=== PATIENT | male | born 1955 | race Caucasian/White ===

== ENCOUNTER 2020-09-11 04:23 | Day surgery (SDC) | payer OTHER ==
[2020-09-07 16:53] VITALS: BMI 33.4
[2020-09-11] MEDS ORDERED: PROPOFOL 20 ML ONE (07:37)
[2020-09-11] MEDS ORDERED: MIDAZOLAM HCL 2 MG/2 ML SINGLE DOSE VIAL ONE ×2 (07:37→08:05)
[2020-09-11 11:27] VITALS: BP 143/92; PULSE 75; TEMP 98
== END 2020-09-11 10:30 | disposition home or self-care (01) ==
LOC: JASU-SURG 04:23
PROVIDERS: ATTEND Urology
PROC: 0TF4XZZ Fragmentation in Left Kidney Pelvis, External Approach (ICD-10-PCS; principal; 2020-09-11 08:00)
DX: N20.0 Calculus of kidney (principal)

== ENCOUNTER 2020-10-06 20:37 | Inpatient (IN) | payer OTHER ==
[2020-10-06 22:50] LABS: HEMATOCRIT 26.1 % (35.4-49); HEMOGLOBIN 8.5 GM/dL (11.7-16.9); MCH 28.5 pg (25.7-33.7); MCHC 32.8 g/dl (32.0-35.9); MEAN CELL VOLUME 87.1 fl (80-96); MEAN PLT VOLUME 7.5 fl (7.5-11.1); PLATELET COUNT 496 10^3/uL (134-434); RBC 2.99 M/mm3 (4.00-5.60); RDW 15.3 % (11.9-15.9); WHITE BLOOD COUNT 20.4 K/mm3 (4.0-10.0)
[2020-10-06 23:00] LABS: INR 1.62 (0.83-1.09); PROTHROMBIN TIME (PATIENT) 19.3 SEC (9.7-13.0)
[2020-10-06 23:07] LABS: CHLORIDE 105 mmol/L (98-107); SODIUM 139 mmol/L (136-145)
[2020-10-06 23:10] LABS: ALBUMIN 2.3 g/dl (3.4-5.0); ANION GAP 10 MMOL/L (8-16); BLOOD UREA NITROGEN 19.2 mg/dL (7-18); CALCIUM 8.7 mg/dL (8.5-10.1); CO2 23 mmol/L (21-32); LIPASE 112 U/L (73-393); MAGNESIUM 2.1 mg/dL (1.8-2.4)
[2020-10-06 23:11] LABS: GLUCOSE,RANDOM 105 mg/dL (74-106)
[2020-10-06 23:13] LABS: CREATININE 1.3 mg/dL (0.55-1.3); SGOT/AST 57 U/L (15-37); SGPT/ALT 85 U/L (13-61)
[2020-10-06 23:14] LABS: PHOSPHOROUS 2.5 mg/dL (2.5-4.9)
[2020-10-06 23:15] LABS: BILIRUBIN,TOTAL 0.5 mg/dL (0.2-1); TOT PROT 6.9 g/dl (6.4-8.2)
[2020-10-06 23:16] LABS: ALK PHOS 241 U/L (45-117)
[2020-10-06] MEDS ORDERED: SODIUM CHLORIDE 0.9% 500 ML INFUS.BAG IV ONE (23:41)
[2020-10-07] MEDS ORDERED: DEXTROSE 5%-NORMAL SALINE 1,000 ML IV SCH (05:15)
[2020-10-07] MEDS ORDERED: ACETAMINOPHEN 1000 MG/100 ML VIAL (NON FORMULARY) IVPB ONE (06:38)
[2020-10-07] MEDS ORDERED: PIPERACILLIN/TAZOB 3.375 GM 3.375 GM in DEXTROSE 5%-WATER - 50 ML IVPB SCH (07:30)
[2020-10-07] MEDS ORDERED: PIPERACILLIN/TAZOBACTAM 3.375 GM VIAL IVPB ONE ×2 (08:39→17:03)
[2020-10-07] MEDS ORDERED: DEXTROSE 5%-WATER - 50 ML IVPB ONE ×2 (08:39→17:03)
[2020-10-07] MEDS: ALLOPURINOL 100 MG TABLET (FP) PO SCH (09:11)
[2020-10-07] MEDS: ENOXAPARIN NA (PORCINE) 40 MG/0.4 ML DISP.SYRIN SQ SCH (09:11)
[2020-10-07] MEDS: PIPERACILLIN/TAZOB 3.375 GM 3.375 GM in DEXTROSE 5%-WATER - 50 ML IVPB SCH ×2 (09:11→17:17)
[2020-10-07] MEDS ORDERED: PT OWN MED DRAWER 7, Y5N ONE (09:32)
[2020-10-07 10:29] LABS: HEMATOCRIT 24.5 % (35.4-49); MCH 28.6 pg (25.7-33.7); MCHC 32.8 g/dl (32.0-35.9); MEAN CELL VOLUME 87.2 fl (80-96); MEAN PLT VOLUME 7.6 fl (7.5-11.1); PLATELET COUNT 442 10^3/uL (134-434); RBC 2.82 M/mm3 (4.00-5.60); RDW 15.3 % (11.9-15.9); WHITE BLOOD COUNT 14.8 K/mm3 (4.0-10.0)
[2020-10-07] MEDS: FAMOTIDINE 20 MG/50 ML IVPB 20 MG/50 ML MG IVPB SCH ×2 (10:56→21:11)
[2020-10-07 11:45] LABS: ANISOCYTOSIS 0; HELMET CELLS 0; HOWELL-JOLLY BODIES 0; MACROCYTOSIS 0; OVALOCYTE 0; PLATELET ESTIMATE NORMAL; ROULEAU 0; SICKELED CELLS 0; TARGET CELLS 0; TEAR DROP CELLS 0; TOXIC GRANULATION 0
[2020-10-07 14:11] LABS: URINE APPEARANCE CLEAR; URINE BILIRUBIN NEGATIVE (NEGATIVE); URINE COLOR YELLOW; URINE GLUCOSE (UA) NEGATIVE (NEGATIVE); URINE KETONE TRACE (NEGATIVE)
[2020-10-07 14:12] LABS: URINE LEUK ESTERASE NEGATIVE (NEGATIVE); URINE NITRITE NEGATIVE (NEGATIVE); URINE PROTEIN 30 MG/DL (NEGATIVE); URINE UROBILINOGEN 1 mg/dL (0.2-1.0)
[2020-10-07] MEDS ORDERED: SODIUM CHLORIDE 0.45%/POT 20 MEQ/1,000 ML INFUS.BAG IV SCH (15:15)
[2020-10-08] MEDS ORDERED: PIPERACILLIN/TAZOBACTAM 3.375 GM VIAL IVPB ONE ×3 (00:52→17:18)
[2020-10-08] MEDS ORDERED: DEXTROSE 5%-WATER - 50 ML IVPB ONE ×3 (00:53→17:19)
[2020-10-08] MEDS: PIPERACILLIN/TAZOB 3.375 GM 3.375 GM in DEXTROSE 5%-WATER - 50 ML IVPB SCH ×3 (01:32→18:09)
[2020-10-08] MEDS ORDERED: PIPERACILLIN/TAZOB 3.375 GM 3.375 GM in DEXTROSE 5%-WATER - 50 ML IVPB SCH (02:00)
[2020-10-08 08:31] LABS: BASO % 0.3 % (0-2.0); EOS % 0.7 % (0-4.5); HEMATOCRIT 25.2 % (35.4-49); HEMOGLOBIN 8.4 GM/dL (11.7-16.9); LYMPH % 4.4 % (8-40); MCH 28.9 pg (25.7-33.7); MCHC 33.2 g/dl (32.0-35.9); MEAN CELL VOLUME 87.2 fl (80-96); MEAN PLT VOLUME 7.8 fl (7.5-11.1); MONO % 6.1 % (3.8-10.2); NEUT % 88.5 % (42.8-82.8); PLATELET COUNT 442 10^3/uL (134-434); RBC 2.89 M/mm3 (4.00-5.60); RDW 15.1 % (11.9-15.9); WHITE BLOOD COUNT 10.9 K/mm3 (4.0-10.0)
[2020-10-08 08:38] LABS: INR 1.51 (0.83-1.09); PROTHROMBIN TIME (PATIENT) 18.1 SEC (9.7-13.0)
[2020-10-08 08:56] LABS: ALBUMIN 1.9 g/dl (3.4-5.0); BLOOD UREA NITROGEN 18.9 mg/dL (7-18); CALCIUM 7.9 mg/dL (8.5-10.1); MAGNESIUM 2.3 mg/dL (1.8-2.4)
[2020-10-08 09:01] LABS: BILIRUBIN,TOTAL 0.4 mg/dL (0.2-1); TOT PROT 6.4 g/dl (6.4-8.2)
[2020-10-08] MEDS: ENOXAPARIN NA (PORCINE) 40 MG/0.4 ML DISP.SYRIN SQ SCH (09:04)
[2020-10-08] MEDS ORDERED: PHYTONADIONE 10 MG/1 ML AMP SQ ONE (10:07)
[2020-10-08] MEDS ORDERED: ACETAMINOPHEN 1000 MG/100 ML VIAL (NON FORMULARY) IVPB ONE (10:13)
[2020-10-08] MEDS: FAMOTIDINE 20 MG/50 ML IVPB 20 MG/50 ML MG IVPB SCH ×2 (10:26→21:45)
[2020-10-08] MEDS: ALLOPURINOL 100 MG TABLET (FP) PO SCH (10:27)
[2020-10-08] MEDS: D5-1/2NS+20 MEQ KCL - 20 MEQ/1,000 ML INFUS.BAG IV SCH (15:07)
[2020-10-08] MEDS ORDERED: IBUPROFEN 800 MG/8 ML IJ IVPB ONE (17:45)
[2020-10-09] MEDS ORDERED: DEXTROSE 5%-WATER - 50 ML IVPB ONE ×3 (01:04→17:52)
[2020-10-09] MEDS ORDERED: PIPERACILLIN/TAZOBACTAM 3.375 GM VIAL IVPB ONE ×3 (01:04→17:52)
[2020-10-09] MEDS: PIPERACILLIN/TAZOB 3.375 GM 3.375 GM in DEXTROSE 5%-WATER - 50 ML IVPB SCH ×3 (01:20→17:54)
[2020-10-09 07:43] LABS: HEMATOCRIT 23.6 % (35.4-49); HEMOGLOBIN 7.8 GM/dL (11.7-16.9); MCH 28.5 pg (25.7-33.7); MCHC 32.9 g/dl (32.0-35.9); MEAN CELL VOLUME 86.5 fl (80-96); MEAN PLT VOLUME 7.7 fl (7.5-11.1); PLATELET COUNT 350 10^3/uL (134-434); RBC 2.73 M/mm3 (4.00-5.60); RDW 15.6 % (11.9-15.9); WHITE BLOOD COUNT 13.4 K/mm3 (4.0-10.0)
[2020-10-09 07:45] LABS: INR 1.68 (0.83-1.09)
[2020-10-09 07:50] LABS: ALBUMIN 1.8 g/dl (3.4-5.0); BLOOD UREA NITROGEN 16.5 mg/dL (7-18); CALCIUM 7.8 mg/dL (8.5-10.1); MAGNESIUM 2.3 mg/dL (1.8-2.4)
[2020-10-09 07:53] LABS: CREATININE 0.9 mg/dL (0.55-1.3)
[2020-10-09 07:55] LABS: TOT PROT 6.1 g/dl (6.4-8.2)
[2020-10-09 07:58] LABS: BILIRUBIN,TOTAL 0.3 mg/dL (0.2-1)
[2020-10-09] MEDS ORDERED: ACETAMINOPHEN 1000 MG/100 ML VIAL (NON FORMULARY) IVPB PRN (08:10)
[2020-10-09] MEDS ORDERED: IBUPROFEN 800 MG/8 ML IJ IVPB PRN (08:21)
[2020-10-09] MEDS ORDERED: IBUPROFEN 800 MG/8 ML IJ IVPB ONE (08:30)
[2020-10-09 08:48] LABS: ANISOCYTOSIS 0; HELMET CELLS 0; HOWELL-JOLLY BODIES 0; MACROCYTOSIS 0; OVALOCYTE 0; PLATELET ESTIMATE NORMAL; ROULEAU 0; SICKELED CELLS 0; TARGET CELLS 0; TEAR DROP CELLS 0; TOXIC GRANULATION 0
[2020-10-09] MEDS: ALLOPURINOL 100 MG TABLET (FP) PO SCH (09:38)
[2020-10-09] MEDS: FAMOTIDINE 20 MG/50 ML IVPB 20 MG/50 ML MG IVPB SCH ×2 (09:39→21:41)
[2020-10-09] MEDS: ENOXAPARIN NA (PORCINE) 40 MG/0.4 ML DISP.SYRIN SQ SCH (10:51)
[2020-10-09] MEDS ORDERED: MIDAZOLAM HCL 2 MG/2 ML SINGLE DOSE VIAL IVPUSH ONE (12:10)
[2020-10-09 15:17] VITALS: BMI 32.6
[2020-10-09] MEDS: D5-1/2NS+20 MEQ KCL - 20 MEQ/1,000 ML INFUS.BAG IV SCH (17:50)
[2020-10-10] MEDS ORDERED: DEXTROSE 5%-WATER - 50 ML IVPB ONE (01:24)
[2020-10-10] MEDS ORDERED: PIPERACILLIN/TAZOBACTAM 3.375 GM VIAL IVPB ONE (01:24)
[2020-10-10] MEDS: PIPERACILLIN/TAZOB 3.375 GM 3.375 GM in DEXTROSE 5%-WATER - 50 ML IVPB SCH (02:45)
[2020-10-10 08:35] LABS: HEMATOCRIT 29.3 % (35.4-49); HEMOGLOBIN 9.8 GM/dL (11.7-16.9); MCH 28.7 pg (25.7-33.7); MCHC 33.6 g/dl (32.0-35.9); MEAN CELL VOLUME 85.6 fl (80-96); MEAN PLT VOLUME 7.8 fl (7.5-11.1); PLATELET COUNT 412 10^3/uL (134-434); RBC 3.42 M/mm3 (4.00-5.60); RDW 15.6 % (11.9-15.9); WHITE BLOOD COUNT 9.7 K/mm3 (4.0-10.0)
[2020-10-10 08:54] LABS: CALCIUM 7.9 mg/dL (8.5-10.1)
[2020-10-10 08:55] LABS: ALBUMIN 1.8 g/dl (3.4-5.0); BLOOD UREA NITROGEN 17.1 mg/dL (7-18); MAGNESIUM 2.4 mg/dL (1.8-2.4)
[2020-10-10 08:57] LABS: CREATININE 0.9 mg/dL (0.55-1.3)
[2020-10-10 08:59] LABS: BILIRUBIN,TOTAL 0.4 mg/dL (0.2-1)
[2020-10-10] MEDS: ENOXAPARIN NA (PORCINE) 40 MG/0.4 ML DISP.SYRIN SQ SCH (10:04)
[2020-10-10] MEDS: ALLOPURINOL 100 MG TABLET (FP) PO SCH (10:04)
[2020-10-10] MEDS: FAMOTIDINE 20 MG/50 ML IVPB 20 MG/50 ML MG IVPB SCH (10:04)
[2020-10-10] MEDS: ERTAPENEM SODIUM 1 GM in SODIUM CHLORIDE 50 ML IVPB SCH (10:57)
[2020-10-10 13:45] LABS: EPI CELLS 7 /uL (0-25.1); HYALINE CASTS 4 /uL (0-3.1); PH,URINE 5.5 (5.0-8.0); URINE APPEARANCE CLEAR; URINE BACTERIA 4 /uL (0-1359); URINE BILIRUBIN NEGATIVE (NEGATIVE); URINE COLOR YELLOW; URINE GLUCOSE (UA) NEGATIVE (NEGATIVE); URINE KETONE NEGATIVE (NEGATIVE); URINE LEUK ESTERASE TRACE (NEGATIVE); URINE NITRITE NEGATIVE (NEGATIVE); URINE PROTEIN TRACE (NEGATIVE); URINE RBC 14 /uL (0-23.9); URINE UROBILINOGEN 0.2 mg/dL (0.2-1.0); URINE WBC 18 /uL (0-25.8)
[2020-10-10] MEDS ORDERED: IBUPROFEN 600 MG TABLET (FP) PO PRN (16:45)
[2020-10-10] MEDS: D5-1/2NS+20 MEQ KCL - 20 MEQ/1,000 ML INFUS.BAG IV SCH (16:54)
[2020-10-10] MEDS ORDERED: ALPRAZolam 1 MG TABLET PO PRN (17:18)
[2020-10-10] MEDS: ALPRAZolam 1 MG TABLET PO ONE ×2 (18:01→18:12)
[2020-10-10] MEDS: FAMOTIDINE 20 MG TABLET PO SCH (21:09)
[2020-10-11 07:58] LABS: HEMATOCRIT 32.4 % (35.4-49); HEMOGLOBIN 10.9 GM/dL (11.7-16.9); MCH 29.2 pg (25.7-33.7); MCHC 33.7 g/dl (32.0-35.9); MEAN CELL VOLUME 86.4 fl (80-96); MEAN PLT VOLUME 8.3 fl (7.5-11.1); PLATELET COUNT 474 10^3/uL (134-434); RBC 3.75 M/mm3 (4.00-5.60); RDW 16.3 % (11.9-15.9)
[2020-10-11 08:22] LABS: CALCIUM 8.6 mg/dL (8.5-10.1)
[2020-10-11 08:23] LABS: BLOOD UREA NITROGEN 17.2 mg/dL (7-18)
[2020-10-11 08:25] LABS: MAGNESIUM 2.2 mg/dL (1.8-2.4)
[2020-10-11 08:26] LABS: CREATININE 0.8 mg/dL (0.55-1.3)
[2020-10-11 08:28] LABS: BILIRUBIN,TOTAL 0.3 mg/dL (0.2-1); TOT PROT 6.3 g/dl (6.4-8.2)
[2020-10-11 08:29] LABS: PHOSPHOROUS 4.3 mg/dL (2.5-4.9)
[2020-10-11] MEDS: ERTAPENEM SODIUM 1 GM in SODIUM CHLORIDE 50 ML IVPB SCH (10:05)
[2020-10-11] MEDS: ENOXAPARIN NA (PORCINE) 40 MG/0.4 ML DISP.SYRIN SQ SCH (10:06)
[2020-10-11] MEDS: FAMOTIDINE 20 MG TABLET PO SCH (10:07)
[2020-10-11] MEDS: ALLOPURINOL 100 MG TABLET (FP) PO SCH (10:07)
[2020-10-11 10:26] VITALS: BP 141/86; PULSE 64; TEMP 98.7
== END 2020-10-11 12:43 | disposition home health service (06) | DRG 441 ==
LOC: JER 20:37 → JERBED 10-07 03:28 → J8W 10-07 05:02 → J4S 10-08 16:56
PROVIDERS: ADMIT Internal Medicine; ATTEND Family Medicine
PROC: 0F9030Z Drainage of Liver with Drainage Device, Percutaneous Approach (ICD-10-PCS; principal; 2020-10-09)
PROC: 02HV33Z Insertion of Infusion Device into Superior Vena Cava, Percutaneous Approach (ICD-10-PCS; 2020-10-10)
PROC: B518ZZA Fluoroscopy of Superior Vena Cava, Guidance (ICD-10-PCS; 2020-10-10)
DX: K75.0 Abscess of liver (principal); A41.89 Other specified sepsis; E86.0 Dehydration; I10 Essential (primary) hypertension; E11.9 Type 2 diabetes mellitus without complications; M10.9 Gout, unspecified; R10.11 Right upper quadrant pain; K42.9 Umbilical hernia without obstruction or gangrene; K40.90 Unilateral inguinal hernia, without obstruction or gangrene, not specified as recurrent; D72.829 Elevated white blood cell count, unspecified; D64.9 Anemia, unspecified; E88.09 Other disorders of plasma-protein metabolism, not elsewhere classified; D47.3 Essential (hemorrhagic) thrombocythemia; N20.0 Calculus of kidney; R63.4 Abnormal weight loss; Z68.32 Body mass index [BMI] 32.0-32.9, adult; T18.3XXA Foreign body in small intestine, initial encounter; R50.9 Fever, unspecified
CPT/HCPCS: 36415; 36430; 36569; 49405; 71045-TC-FY; 74018-TC-FY; 74177-TC; 76700-TC; 77001-TC-FY; 80048; 80053; 81003; 82272; 82550; 82607; 82728; 83540; 83550; 83605; 83615; 83690; 83735; 84100; 84484; 85025; 85027; 85220; 85240; 85610; 85730; 86301; 86682; 86753; 86850; 86900; 86901; 86922; 87040; 87070; 87075; 87077; 87086; 87102; 87116; 87205; 87206; 87207; 87210; 87899; 88108; 88305-TC; 93005; 93010; 99285-25; C1729; C1751; C1769; C9803; J0131; J3480; P9058; U0003; U0005

== ENCOUNTER 2021-02-09 08:42 | Emergency (ER) | payer OTHER ==
[2021-02-09 09:05] VITALS: BP 134/83; PULSE 57; TEMP 98.6; BMI 31.1
[2021-02-09 09:57] LABS: BASO % 0.6 % (0-2.0); HEMATOCRIT 40.3 % (35.4-49); HEMOGLOBIN 13.5 GM/dL (11.7-16.9); MCH 30.5 pg (25.7-33.7); MCHC 33.4 g/dl (32.0-35.9); MEAN CELL VOLUME 91.3 fl (80-96); MEAN PLT VOLUME 8.8 fl (7.5-11.1); MONO % 10.2 % (3.8-10.2); NEUT % 79.2 % (42.8-82.8); PLATELET COUNT 238 10^3/uL (134-434); RBC 4.42 M/mm3 (4.00-5.60); RDW 13.9 % (11.9-15.9); WHITE BLOOD COUNT 8.9 K/mm3 (4.0-10.0)
[2021-02-09 10:06] LABS: CALCIUM 9.1 mg/dL (8.5-10.1)
[2021-02-09 10:07] LABS: ALBUMIN 3.2 g/dl (3.4-5.0)
[2021-02-09 10:10] LABS: CREATININE 1.3 mg/dL (0.55-1.3)
[2021-02-09 10:11] LABS: BILIRUBIN,TOTAL 0.3 mg/dL (0.2-1)
[2021-02-09 10:12] LABS: TOT PROT 6.4 g/dl (6.4-8.2)
[2021-02-09 10:15] LABS: PROTHROMBIN TIME (PATIENT) 11.7 SEC (9.7-13.0)
[2021-02-09 10:18] LABS: ACTIVATED PTT 27.1 SECONDS (25.2-36.5)
[2021-02-09 10:22] LABS: BLOOD UREA NITROGEN 28.3 mg/dL (7-18)
[2021-02-09] MEDS ORDERED: KETOROLAC TROMETHAMINE 15 MG/ML VIAL IVPUSH ONE (11:41)
[2021-02-09] MEDS ORDERED: KETOROLAC TROMETHAMINE 30 MG/1 ML VIAL ONE (12:02)
[2021-02-09 13:25] LABS: URINE APPEARANCE CLEAR; URINE BILIRUBIN NEGATIVE (NEGATIVE); URINE COLOR YELLOW; URINE GLUCOSE (UA) NEGATIVE (NEGATIVE); URINE KETONE NEGATIVE (NEGATIVE); URINE LEUK ESTERASE NEGATIVE (NEGATIVE); URINE NITRITE NEGATIVE (NEGATIVE); URINE PROTEIN NEGATIVE (NEGATIVE); URINE UROBILINOGEN 0.2 mg/dL (0.2-1.0)
== END 2021-02-09 13:30 | disposition home or self-care (01) ==
LOC: JER 08:42
PROC: 3E0333Z Introduction of Anti-inflammatory into Peripheral Vein, Percutaneous Approach (ICD-10-PCS; principal; 2021-02-09)
DX: R10.31 Right lower quadrant pain (principal)
CPT/HCPCS: 36415; 74177-TC; 80053; 81003; 85025; 85610; 85730; 86850; 86900; 86901; 87040; 87086; 93005; 93010; 99285-25

== ENCOUNTER 2021-04-23 04:24 | Day surgery (SDC) | payer OTHER ==
[2021-04-19 15:13] VITALS: BMI 31.1
[2021-04-23] MEDS ORDERED: MIDAZOLAM HCL 2 MG/2 ML SINGLE DOSE VIAL ONE ×2 (12:09→12:28)
[2021-04-23] MEDS ORDERED: LIDOCAINE HCL/PF 2% SDV 5ML VIAL ONE (12:10)
[2021-04-23 13:17] VITALS: BP 129/87; PULSE 67; TEMP 98.8
== END 2021-04-23 13:40 | disposition home or self-care (01) ==
LOC: JASU-SURG 04:24
PROVIDERS: ATTEND Urology
PROC: 0TF3XZZ Fragmentation in Right Kidney Pelvis, External Approach (ICD-10-PCS; principal; 2021-04-23 11:30)
DX: N20.0 Calculus of kidney (principal)